=== PATIENT | female | born 1960 | race Caucasian/White ===

== ENCOUNTER → 2021-04-16 15:04 | Outpatient (CLI) | payer BC, SELFPAY ==
--- NOTE | ~2021-04-16 | MM_ITS ---
EXAMINATION: MM screening [facility] BI w kar HISTORY: Screening mammogram TECHNIQUE: Craniocaudal and mediolateral oblique 3-D tomosynthesis images were obtained and synthetic 2-D images were generated. CAD analysis was submitted and interpreted. COMPARISON: 01/01/2019, 01/14/2014, 01/11/2013 BREAST PARENCHYMAL COMPOSITION: There are scattered areas of fibroglandular density. FINDINGS: Scattered benign-appearing calcifications are present. There is no evidence of suspicious m ass, calcification, or architectural distortion to suggest malignancy in either breast. There has bee n no suspicious interval change. IMPRESSION: 1. No mammographic evidence of malignancy. 2. Recommend routine screening mammography in one year. BI-RADS Category 2: Benign finding(s). Reviewed, dictated and finalized at location A. IN WASHER
== END ==
PROVIDERS: Visit Provider Nurse Practitioner
DX: Z12.31 Encounter for screening mammogram for malignant neoplasm of breast (principal)
CPT/HCPCS: 77063; 77067

== ENCOUNTER → 2022-10-04 10:08 | Outpatient (CLI) | payer BC, SELFPAY ==
--- NOTE | ~2022-10-04 | MM_ITS ---
EXAMINATION: MM screening [facility] BI w kar HISTORY: Screening mammogram TECHNIQUE: Craniocaudal and mediolateral oblique 3-D tomosynthesis images were obtained and synthetic 2-D images were generated. CAD analysis was submitted and interpreted. COMPARISON: 04/16/2021, 01/01/2019, 01/14/2014 BREAST PARENCHYMAL COMPOSITION: There are scattered areas of fibroglandular density. FINDINGS: No suspicious mass, calcification, or architectural distortion are identified in either jeni ast to suggest malignancy. There has been no suspicious interval change. IMPRESSION: 1. No mammographic evidence of malignancy. 2. Recommend routine screening mammography in one year. BI-RADS Category 1: Negative Reviewed, dictated and finalized at location A.
== END ==
PROVIDERS: PCP Nurse Practitioner; Visit Provider Nurse Practitioner
DX: Z12.31 Encounter for screening mammogram for malignant neoplasm of breast (principal)
CPT/HCPCS: 77063; 77067

== ENCOUNTER 2024-04-09 12:43 | Outpatient (CLI) | payer BC, SELFPAY ==
--- NOTE | ~2024-04-09 | MM_ITS ---
EXAMINATION: MM screening [facility] BI w kar HISTORY: Screening TECHNIQUE: Craniocaudal and mediolateral oblique 3-D tomosynthesis images were obtained and synthetic 2-D images were generated. CAD analysis was submitted and interpreted. COMPARISON: Comparison to multiple prior studies sequentially, with oldest reviewed study dated 07/2018. BREAST PARENCHYMAL COMPOSITION: Not dense: There are scattered areas of fibroglandular density. FINDINGS: There is no evidence of suspicious mass, calcification, or architectural distortion to sugg est malignancy in either breast. There has been no suspicious interval change. IMPRESSION: 1. No mammographic evidence of malignancy. 2. Recommend routine screening mammography in one year. BI-RADS Category 1: Negative Reviewed, dictated and finalized at location B. 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
== END 2024-04-09 12:44 | disposition home or self-care (01) ==
LOC: MICIMG 12:44
PROVIDERS: PCP Obstetrics & Gynecology Gynecology; Visit Provider Obstetrics & Gynecology Gynecology
DX: Z12.31 Encounter for screening mammogram for malignant neoplasm of breast (principal)
CPT/HCPCS: 77063; 77067

== ENCOUNTER 2024-08-16 00:12 | Day surgery (SDC) | payer BC, SELFPAY ==
[2024-08-05 09:12] VITALS: BMI 26.6
--- OUTSIDE RECORDS SUMMARY | 2024-08-16 00:15 | XMS_ITS | Referral Summary ---
Author Organization [facility] C Address [address] [place] [address] Care Team Providers Care Community Education Coordinator Name Role Phone Franky Castano MD Primary Care Provider + [phone] Allergies No known active allergies Medications betamethasone valerate (VALISONE) 0.1 % lotion Apply 3-5 drops to ear canal (and may also apply to ear canal opening with q-tip) daily for 7 days, then may use twice a week for maintenance 60 mL 1 2 Active triamcinolone (NASACORT) 55 mcg nasal inhaler Administer 2 sprays into each nostril daily To administer: tilt head forward, and aim spray outward (towards the eye or ear on same side) 16.9 mL 11 2 Active benzonatate (TESSALON) 100 mg capsule TAKE 1 CAPSULE BY MOUTH THREE TIMES DAILY FOR 5 DAYS 2 Active predniSONE (DELTASONE) 20 mg tablet 2 Active sulfamethoxazol e-trimethoprim (BACTRIM DS) 800-160 mg per tablet Take 1 tablet by mouth 2 (two) times a day 2 Active albuterol HFA (PROVENTIL HFA,VENTOLIN HFA,PROAIR HFA) 90 mcg/actuation inhaler INHALE 2 PUFFS BY MOUTH EVERY 4 HOURS FOR 5 DAYS 2 Active Active Problems No known active problems Social History Tobacco Use Types Packs/Day Years Used Date Smoking Tobacco: Some Days Cigarettes Smokeless Tobacco: Never AUDIT-C Answer Date Recorded Q1: How often do you have a drink containing alcohol? Never 01/23/2022 Q2: How many drinks containi ng alcohol do you have on a typical day when you are drinking? Patient does not drink 2 Q3: How often do you have si x or more drinks on one occasion? 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
--- OUTSIDE RECORDS SUMMARY | 2024-08-16 00:15 | XMS_ITS | Clinical Summary ---
Author Organization [facility] C Address [address] [place] [address] Care Team Providers Care Jet Engine Mechanic Name Role Phone Franky Casatno MD Primary Care Provider + [phone] Allergies No known active allergies Medications betamethasone [...] Active Active Problems No known active problems Surgical History Surgery Date Site/Laterality Comments TONSILLECTOMY APPENDECTOMY SECTION Social History Tobacco Use Types Packs/Day Years Used Date Smoking Tobacco: Some Days Cigarettes Smokeless Tobacco: Never AUDIT-C Answer Date Recorded Q1: How often do you have a drink containing alcohol? Never 01/23/2022 Q2: How many drinks containi ng alcohol do you have on a typical day when you are drinking? Patient does not drink Q3: How often do you have si x or more drinks on one occasion? 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 Gender Identity Not on file Sexual Orientation Not on file Obstetrics History Plan of Treatment Health Maintenance Due Date Last Done Comments Breast Cancer Screening-Mammogram 1960 Cervical Cancer Screening 1960 Colon Cancer Screening-Colonoscopy 1960 Depression Screening 1962 Hepatitis C Screening 1962 Hepatitis B Screening 1980 Regular Well Visit/Exam 18-64 1980 Pneumococcal vaccine <65 (1 of 2 - PCV) 1981 Zoster Vaccine (1 of 2) 2012 Covid-19 Vaccine (4 - season) 2024 05/15/2021, 09/01/2020, 08/11/2020 Influenza Vaccine (#1) 2024 DTaP/Tdap/Td Vaccine (2 - Td or Tdap) 11/16/2028 Insurance [employer] CHOICE Care Teams Jet Engine Mechanic Relationship Specialty Start Date End Date Franky Castano MD PCP - General Family Medicine 01/23/22
--- OUTSIDE RECORDS SUMMARY | 2024-08-16 00:15 | XMS_ITS | Continuity of Care Document ---
Author Organization [facility] Address [address] [place] [address] Phone Care Team Providers Care Burner Operator Name Role Phone Ramos Branham MD Unavailable Unavailabl e Allergies, Adverse Reactions, Alerts Substance Reaction Status Criticality No Known Allergies Active No Inform ation Procedures Procedure Date BMI Documented Above Normal Limit F/U Pl an Doc X-ray exam elbow, 3+ views Office/outpatient visit,[facility], [facility] 2023 Advance Directives Directive Yes / No Effective Date File Name No Information Encounters Encounter Description Practice Location Reason(s) For Visit Diagnoses Date Provider Providers Copied on Encounter [facility] [employer] [facility], [address], [id number], [place] tel:[phone] [employer] [facility] No Information 4 Yonas Beasley. [address] [facility] [facility] [address], [place], [place], [id number], [place]. 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 [address] [facility], [address], [place], [place], [id number], [place]. tel:[phone] [employer] [facility], [address], [id number], [place] tel:[phone] [facility] Pain in right elbow 4 [facility]. [address] [facility] [address] [facility], [address], [place], [place], [id number], [place]. tel:[phone] Referring Provider: Ramos Da Silva, [address], [place], [address] . tel:[phone] Office/outpat ient visit,new, [facility], [address], [place], [place], [id number], [place] tel:[phone] [facility] Right elbow (chief complaint) Pain in right elbowBenign neoplasm of connective and other soft tissue of right upper limb, including shoulder 4 Yonas Beasley. [address] [facility], [address], [place], [place], [id number], [place]. tel:[phone] Family History Family Member Type Diagnosis Age At Onset No Information Payers Payer name Insurance type Covered libertarian ID Authoriza derrellapril(s) Kayley Mondragon [facility] [id number] Social History Type Description Quantity Date Captured Comments Alcohol Use Details Unknown Caffeine Use Details Unknown Tobacco Use Status Smoking Status No Information Sex Female Chief Complaint And Reason For Visit No Information Reason For Referral Reason For Referral No Information Plan Of Treatment Date Type Action Status Referral Ordered: Ultrasound Exam, Extremity RT ordered Referral Ordered: X-ray exam elbow, 3+ views RT ordered Referral Ordered: MRI Upper extr joint, w/o contrast RT elbow ordered History Of Present Illness Encounter Date Complaint History Of Prese nt Illness Right elbow Kadi presents to the office today on February 18, 2024. She is here because of a painful growing mass on the posterior aspect of her right elbow. Kadi reports that she first noticed this mass more than 10 years ago. Over time, it has gotten larger and more painful. She does not describe any numbness or tingling. Kadi tells me that she first presented to her cylinder die machine helper, and her cylinder die machine helper referred her to my office. She is here now for further evaluation and treatment of her right elbow. Functional Status Date Functional Assessmen t No Information Instructions Date Instruction Additional Infor mation No Information Assessments Type Assessment Date No Information Patient Care Teams Name Effective Dates (start - stop) Status Members No Information
[2024-08-16 08:42] VITALS: BP 143/83; PULSE 91; RESP 16; TEMP 36.4; O2SAT 100; BMI 26.5
--- NOTE | 2024-08-16 08:46 | P.PNAN_ITS ---
Anes - Initial Pre Proc Eval Procedure: Operation Date: 08/16/24 10:00 Proposed Procedures p Colonoscopy - Patrice Parker MD Date/Time: 08/16/24 08:46 Surgeon: Patrice Parker MD Pre Op Diagnosis: fecal abnormalities Patient Data Age: 63 Gender: F Height: 1.7 m Weight: 76.9 kg Last Vital Signs Temp 36.4 C 08/16/24 08:42 Pulse 91 08/16/24 08:42 Resp 16 08/16/24 08:42 BP 143/83 H 08/16/24 08:42 Pulse Ox 100 08/16/24 08:42 O2 Del Method Room Air 08/16/24 08:42 Allergies Allergy/AdvReac Type Severity Reaction Status Date / Time No Known Allergies Allergy Mild Verified 08/16/24 08:39 Home Medications ?Medication ?Instructions ?Recorded ?Confirmed ?Type ergocalciferol (vitamin D2) 1,250 1,250 mcg PO WEEKLY 08/05/24 08/16/24 History mcg (50,000 unit) capsule Patient hx anesthesia problems: none Family hx anesthesia problems: none Results Review: All pre-operative results and documents have been reviewed as part of the pre- operative evaluation. [facility] Past Medical History Medical History (Updated 08/16/24 @ 08:46 by Nathan Nicholson MD) Hyperlipidemia Surgical History Surgical History (Updated 08/16/24 @ 08:46 by Nathan Nicholson MD) Hx of tonsillectomy History of appendectomy Family History Family History Mother Hypertension Patient's mother is in good health, Onset Age: 76 Grandparent Diabetes mellitus Social History Social History Years smoked: 40 Smoking status: Current every day smoker Tobacco type: cigarettes Second hand tobacco smoke exposure: No Alcohol intake: never Substance use: never Substance use type: does not use Living arrangements: with family Spiritual care concerns: No Anes - Eval Final PreProcedure Day of Procedure 08/16/24 08:46 Patient weight: normal Heart: regular rate and rhythm Lungs: clear to auscultation Airway: Mallampati scale class II Neurological: alert and oriented Last oral intake: >/= 8 hours ASA classification: III Emergent: no Anesthetic plan: proceed Anesthesia type and monitoring: general GIVS and standard monitoring Results Review: All pre-operative results and documents have been reviewed as part of the pre- operative evaluation. Informed Consent: The patient's anesthetic plan and its attendant risks and benefits were discussed with the patient/family/POA. Questions were solicited and answers provided to the satisfaction of the patient/family/POA.
[2024-08-16] MEDS: LACTATED RINGERS 1,000 ML 150 ML IV CONT (08:54)
--- NOTE | 2024-08-16 09:14 | PM.IMHP ---
H&P: HPI History of Present Illness Date/Time: 08/16/24 09:14 Chief Complaint: Screening colonoscopy Narrative: This is the patient's first colonoscopy. There are no GI symptoms and there is no family history of colorectal cancer. she has been getting Cologuard testing, and was recently positive. Review of Systems Review of Systems: All systems reviewed & are unremarkable except as noted in HPI and below PMFSH Past Medical History Medical History (Updated 08/16/24 @ 09:15 by Patrice Parker MD) Hyperlipidemia Surgical History Surgical History (Updated 08/16/24 @ 08:46 by Nathan Nicholson MD) Hx of tonsillectomy History of appendectomy Family History Family History Mother Hypertension Patient's mother is in good health, Onset Age: 76 Grandparent Diabetes mellitus Social History Social History Years smoked: 40 Smoking status: Current every day smoker Tobacco type: cigarettes Second hand tobacco smoke exposure: No Alcohol intake: never Substance use: never Substance use type: does not use Living arrangements: with family Spiritual care concerns: No Meds Home Medications and Allergies Home Medications ?Medication ?Instructions ?Recorded ?Confirmed ?Type ergocalciferol (vitamin D2) 1,250 1,250 mcg PO WEEKLY 08/05/24 08/16/24 History mcg (50,000 unit) capsule Allergies Allergy/AdvReac Type Severity Reaction Status Date / Time No Known Allergies Allergy Mild Verified 08/16/24 08:39 Vital Signs Vital Signs - 24 hr 08/16/24 08:42 Temperature 97.6 F Pulse Rate 91 Respiratory Rate 16 Blood Pressure 143/83 H Pulse Oximetry 100 Oxygen Delivery Room Air Exam Const: General: cooperative and healthy appearing Resp: Effort & Inspection: normal respiratory effort and able to speak in complete sentences Auscultation: clear to auscultation bilaterally Cardio: Rate: regular rate Rhythm: regular rhythm GI: Inspection: normal to inspection GI Palp: No No hepatosplenomegaly present Auscultation: normal bowel sounds Rectal Exam: deferred Skin: General skin exam: normal color Psych: Appearance: grossly normal Mental Status: mental status grossly normal Assessment and Plan Assessment and plan (1) Encounter for screening colonoscopy: Code(s): Z12.11 - Encounter for screening for malignant neoplasm of colon Status: Acute Assessment and Plan: The patient is deemed a good candidate for the procedure. Consent signed. Will proceed.
[2024-08-16 09:33] VITALS: BP 88/53; PULSE 78; RESP 20; O2SAT 100
[2024-08-16 09:43] VITALS: BP 93/69; PULSE 84; RESP 20; O2SAT 100
[2024-08-16 09:53] VITALS: BP 106/74; PULSE 75; RESP 18; O2SAT 100
== END 2024-08-16 10:00 | disposition home or self-care (01) ==
PROVIDERS: PCP Family Medicine; Referring Provider Obstetrics & Gynecology Gynecology; Visit Provider Internal Medicine Gastroenterology
PROC: 0DJD8ZZ Inspection of Lower Intestinal Tract, Via Natural or Artificial Opening Endoscopic (ICD-10-PCS; CPT 45378; principal; 2024-08-16 10:00)
DX: Z12.11 Encounter for screening for malignant neoplasm of colon (principal); E78.5 Hyperlipidemia, unspecified; F17.210 Nicotine dependence, cigarettes, uncomplicated; Z98.890 Other specified postprocedural states
CPT/HCPCS: 45378; J2704; J7120

== ENCOUNTER 2024-08-23 12:41 | Outpatient (CLI) | payer BC, SELFPAY ==
--- NOTE | ~2024-08-23 | DEXA_ITS ---
Bone Density Report Name: MARYLU LIGHT Age: 63 Sex: Female Ethnicity: White Date of : 1960 Indication: postmenopausal; screening for osteoporosis; height loss; Referring Provider: KASEY LITTLEJOHN Study: Bone densitometry was performed. Exam Date: August 23, 2024 Accession number: [id number] Bone Density: Region BMD T-score Z-score Classification AP Spine(L1-L4) 1.046 0.0 1.5 Normal Femoral Neck (Left) 0.742 -1.0 0.4 Normal Total Hip (Left) 0.899 -0.4 0.7 Normal Femoral Neck (Right) 0.656 -1.7 -0.4 Osteopenia Total Hip (Right) 0.821 -1.0 0.1 Normal Total Hip Mean 0.860 -0.7 0.4 Normal World Health Organization criteria for BMD impression classify patients as: Normal (T-score at or above -1.0), Osteopenia (T-score between -1.0 and -2.5), or Osteoporosis (T-score at or below -2.5). 10-year Fracture Risk(1): Major Osteoporotic Fracture 9.2% Hip Fracture 1.6% Reported Risk Factors: [place] (), Neck BMD=0.656, BMI=27.0, smoking (1) FRAX(R) Version 3.08. Fracture probability calculated for an untreated patient. Fracture probability may be lower if the patient has received treatment. Clinical Information Provided by Patient: Smokes Has used the following medications: Vitamin D Patient maximum height was 68 Menopause Age: 54 Drinks caffeinated beverages Onset of menses at age 15 Number of children 1 Impression: The patient has low bone mass, based on the Right Femoral Neck T-score. The patient has an estimated ten-year risk of hip fracture of 1.6% and an estimated ten-year risk of major fracture of 9.2%, based on the WHO FRAX algorithm. The patient has risk factors, including: smoking. Discussion: BONE DENSITY IS LOW AT ONE OR MORE SKELETAL SITES. This patient's lowest T-score is low at one or more skeletal sites. It meets the World Health Organization's (WHO) criteria for ?low bone mass? (T-score between -1.0 and -2.5). The patient's 10-year risk of fracture as calculated by FRAX is less than the threshold where pharmacological therapy is recommended by the National Osteoporosis Foundation (NOF). However, all treatment decisions require clinical judgment and consideration of individual patient factors, including patient preferences, comorbidities, previous drug use, risk factors not captured in the FRAX model (e.g., frailty, falls, vitamin D deficiency, increased bone turnover, interval significant decline in bone density) and possible under or overestimation of fracture risk by FRAX. The patient should follow a healthful lifestyle (good nutrition with adequate calcium and vitamin D, and appropriate weight-bearing exercise). Follow-Up: Consider repeating this study in 2 to 3 years to reassess this patient's status, or sooner if there is some new clinical indication. Reported by: STEVE on 08/23/2024 1:24:00 PM. Reviewed, dictated and finalized at location ADragan FUENTES
--- OUTSIDE RECORDS SUMMARY | 2024-08-23 14:27 | XMS_ITS | Clinical Summary ---
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
--- OUTSIDE RECORDS SUMMARY | 2024-08-23 14:27 | XMS_ITS | Referral Summary ---
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
--- OUTSIDE RECORDS SUMMARY | 2024-08-23 14:27 | XMS_ITS | Continuity of Care Document ---
Author Organization [facility] Address [address] [place] [address] Phone Care Team Providers Care Quality Assurance Advisor Name Role Phone Ramos Branham MD Unavailable Unavailabl e Allergies, Adverse Reactions, Alerts Substance Reaction Status Criticality No Known Allergies Active No Inform ation Procedures Procedure Date BMI Documented Above Normal Limit F/U Pl an Doc X-ray exam elbow, 3+ views Office/outpatient visit,[facility], [facility] 2023 Advance Directives Directive Yes / No Effective Date File Name No Information Encounters Encounter Description Practice Location Reason(s) For Visit Diagnoses Date Provider Providers Copied on Encounter [facility], [address], [id number], [place] tel:[phone] [facility] No Information 4 Yonas Beasley. [address] [facility] [facility] [address], [place], [place], [id number], [place]. tel:[phone] [facility], [address], [id number], [place] tel:[phone] [facility] 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 [address] [facility], [address], [place], [place], [id number], [place]. tel:[phone] [facility], [address], [id number], [place] tel:[phone] [facility] Pain in right elbow 4 [facility]. [address] [facility], [address], [place], [place], [id number], [place]. tel:[phone] Referring Provider: Ramos Da Silva, [address] [facility] [address], [place], [address] . tel:[phone] Office/outpat ient visit,new, [facility], [address], [place], [place], [id number], [place] tel:[phone] [facility] Right elbow (chief complaint) Pain in right elbowBenign neoplasm of connective and other soft tissue of right upper limb, including shoulder 4 Yonas Beasley. [address] [facility], [address], [place], [place], [id number], [place]. tel:[phone] Family History Family Member Type Diagnosis Age At Onset No Information Payers Payer name Insurance type Covered democrat ID Authoriza derrellapril(s) Kayley Mondragon [facility] [id number] Social History Type Description Quantity Date [...] me that she first presented to her clay miller, and her clay miller referred her to my office. She is here now for further evaluation and treatment of her right elbow. Functional Status Date Functional Assessmen t No Information Instructions Date Instruction Additional Infor mation No Information Assessments Type Assessment Date No Information Patient Care Teams Name Effective Dates (start - stop) Status Members No Information
== END 2024-08-23 12:42 | disposition home or self-care (01) ==
LOC: ANHIMG 12:46
PROVIDERS: PCP Family Medicine; Visit Provider Obstetrics & Gynecology Gynecology
DX: M85.851 Other specified disorders of bone density and structure, right thigh (principal); Z78.0 Asymptomatic menopausal state
CPT/HCPCS: 77080

== ENCOUNTER 2024-10-18 19:59 | Emergency (ER) | payer BC, SELFPAY ==
[2024-10-18] VITALS (10 sets, daily range): BP systolic 138–163; BP diastolic 78–87; PULSE 69–82; RESP 14–20; TEMP 36.4; O2SAT 98–100
--- NOTE | ~2024-10-18 | CT_ITS ---
EXAMINATION: CT abdomen pelvis wo con DATE: 10/18/2024 23:13 INDICATION: gross hematuria; presyncope TECHNIQUE: Computed tomography (CT) of the abdomen and pelvis was performed without intravenous contr ast. Automated exposure control and iterative reconstruction technique were employed. The dose-length product was 588.74 mGy-cm. COMPARISON: None. FINDINGS: Lower thorax: Mild coronary artery calcification. Granulomatous calcification in the lungs. Liver: Normal. Biliary/Gallbladder: Gallbladder is normal. No bile duct dilation. Pancreas: No mass or duct dilation. Spleen: Normal. Adrenals:No mass. Kidneys: No suspicious mass, obstructing stone, or hydronephrosis. Simple left midpole cyst. GI tract: No small or large bowel dilation. Likely short segment intussusception of small bowel in th e left lower quadrant (axial image [id number]). The appendix is not confidently visualized. Mesentery/Peritoneum: No ascites, mass, or free air. Mesenteric stranding in the left lower quadrant. Retroperitoneum: No mass. Atherosclerotic calcifications of intra-abdominal arterial vessels. A varix is noted in the right paracolic gutter, originating off of renal veins and probably terminating in t he left gonadal vein. Pelvis: Normal uterus and urinary bladder. Bilateral ovaries not commonly visualized. The distal uret ers are difficult to trace in their entirety, but no definite calcification noted in the expected pat hway of the ureters. Soft Tissues: Soft tissues and body wall unremarkable. Bones: No acute osseous finding. IMPRESSION: No definite evidence of obstructive uropathy or nephrolithiasis, noting that the distal ureters are d ifficult to trace in their entirety. Left retroperitoneal/perirenal varix, may be secondary to portal hypertension, renal vein thrombosis, or gonadal vein thrombosis, but evaluation is limited without contrast. Recommend CT of the abdomen and pelvis with contrast for further evaluation. Short segment small bowel intussusception in the left lower quadrant. Typically this is an incidental finding, however there is associated mesenteric edema/inflammation. Correlate for symptoms of left l ower quadrant pain. Reviewed, dictated and finalized at location K. IMPRESSION: No definite evidence of obstructive uropathy or nephrolithiasis, noting that th e distal ureters are difficult to trace in their entirety. Left retroperitoneal/perirenal varix, may be secondary to portal hypertension, renal vein thrombosis, or gonadal vein thrombosis, but evaluation is limited wi thout contrast. Recommend CT of the abdomen and pelvis with contrast for furthe r evaluation. Short segment small bowel intussusception in the left lower quadrant. Typically this is an incidental finding, however there is associated mesenteric edema/in flammation. Correlate for symptoms of left lower quadrant pain.
--- OUTSIDE RECORDS SUMMARY | 2024-10-18 20:02 | XMS_ITS | Continuity of Care Document ---
Author Organization [facility] Address [address] [place] [address] Phone Care Team Providers Care Rural Route Mail Carrier Name Role Phone Ramos Branham MD Unavailable Unavailabl e Allergies, Adverse Reactions, Alerts Substance Reaction Status Criticality No Known Allergies Active No Inform ation Procedures Procedure Date BMI Documented Above Normal Limit F/U Pl an Doc X-ray exam elbow, 3+ views Office/outpatient visit,[facility], [facility] [place] Advance Directives Directive Yes / No Effective Date File Name No Information Encounters Encounter Description Practice Location Reason(s) For Visit Diagnoses Date Provider Providers Copied on Encounter [facility] [facility], [address], [id number], [place] tel:[phone] [facility] No Information 4 Yonas Beasley. [address] [facility] [address], [place], [place], [id number], [place]. 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 [address] [facility], [address], [place], [place], [id number], [place]. tel:[phone] [facility], [address], [id number], [place] tel:[phone] [facility] Pain in right elbow 4 [facility]. [address] [facility], [address], [place], [place], [id number], [place]. tel:[phone] Referring Provider: Ramos Da Silva, [address] [facility] [address], [place], [address] . tel:[phone] Office/outpat ient visit,[place], [facility] [place] [facility], [address] [facility] [address], [place], [place], [id number], [place] tel:[phone] [facility] Right elbow (chief complaint) Pain in right elbowBenign neoplasm of connective and other soft tissue of right upper limb, including shoulder 4 Yonas Beasley. [address] [facility], [address], [place], [place], [id number], [place]. tel:[phone] Family History Family Member Type Diagnosis Age At Onset No Information Payers Payer name Insurance type Covered libertarian ID Authoriza derrellapril(s) Kayley Mondragon [facility] [id number] Social History Type Description Quantity Date [...] me that she first presented to her carding machine feeder, and her carding machine feeder referred her to my office. She is here now for further evaluation and treatment of her right elbow. Functional Status Date Functional Assessmen t No Information Instructions Date Instruction Additional Infor mation No Information Assessments Type Assessment Date No Information Patient Care Teams Name Effective Dates (start - stop) Status Members No Information
--- NOTE | 2024-10-18 22:01 | ECG_ITS ---
Test Date: 2024-10-18 22:26:28 Measurements Intervals [place] Rate: 71 P: 61 MN: 150 QRS: 25 QRSD: 93 T: 29 QT: 384 QTc: 417 Interpretive Statements SINUS RHYTHM INCOMPLETE RIGHT BUNDLE BRANCH BLOCK [90+ ms QRS DURATION, TERMINAL R IN V1/V2, 40+ ms S IN I/aVL/V4/V5/V6] INTERPRETATION BASED ON A DEFAULT AGE OF 40 YEARS No previous ECG available for comparison Electronically Signed On 10-19-2024 13:32:08 CDT by William Rojas M.D.
--- OUTSIDE RECORDS SUMMARY | 2024-10-18 22:33 | XMS_ITS | Referral Summary ---
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
--- OUTSIDE RECORDS SUMMARY | 2024-10-18 22:33 | XMS_ITS | Continuity of Care Document ---
Author Organization [facility] Address [address] [place] [address] Phone Care Team Providers Care Clinical Technologist Name Role Phone Ramos Branham MD Unavailable Unavailabl e Allergies, Adverse Reactions, Alerts Substance Reaction Status Criticality No Known Allergies Active No Inform ation Procedures Procedure Date BMI Documented Above Normal Limit F/U Pl an Doc X-ray exam elbow, 3+ views Office/outpatient visit,[facility], [facility] [place] 2023 Advance Directives Directive Yes / No Effective Date File Name No Information Encounters Encounter Description Practice Location Reason(s) For Visit Diagnoses Date Provider Providers Copied on Encounter [facility] [employer] [facility], [address], [id number], [place] tel:[phone] [facility] No Information 4 Yonas Beasley. [address] [facility], [facility] [address], [place], [place], [id number], [place]. 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 [address] [facility], [address], [place], [place], [id number], [place]. tel:[phone] [facility], [address], [id number], [place] tel:[phone] [facility] Imaging [facility] Pain in right elbow 4 [facility]. [address] [facility], [address], [place], [place], [address], [place]. tel:[phone] Referring Provider: Ramos Da Silva, [address] [facility] [address], [place], [address] . tel:[phone] Office/outpat ient visit,new, [facility], [address] [facility] [address], [place], [place], [address], [place] tel:[phone] [facility] Right elbow (chief complaint) Pain in right elbowBenign neoplasm of connective and other soft tissue of right upper limb, including shoulder 4 Yonas Beasley. [address] [facility], [address], [place], [place], [address], [place]. tel:[phone] Family History Family Member Type Diagnosis Age At Onset No Information Payers Payer name Insurance type Covered libertarian ID Authoriza derrellapril(s) Kayley Mondragon [facility] [id number] 04 Social History Type Description Quantity Date [...] me that she first presented to her toll collector, and her toll collector referred her to my office. She is here now for further evaluation and treatment of her right elbow. Functional Status Date Functional Assessmen t No Information Instructions Date Instruction Additional Infor mation No Information Assessments Type Assessment Date No Information Patient Care Teams Name Effective Dates (start - stop) Status Members No Information
--- OUTSIDE RECORDS SUMMARY | 2024-10-18 22:33 | XMS_ITS | Clinical Summary ---
Author Organization 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
[2024-10-18 22:41] LABS: Basophils Absolute Auto 0.1 K/mm3 (0.0-0.1); Basophils Percent Auto 1.2 % (0.2-1.2); Eosinophils Absolute Auto 0.3 K/mm3 (0-0.3); Eosinophils Percent Auto 2.8 % (0-4.4); Hematocrit 45.4 % (37.0-47.0); Hemoglobin 14.4 g/dL (12.0-15.0); Immature Granulocyte Absolute 0.02 K/mm3 (0.00-0.031); Immature Granulocyte Percent A 0.2 % (0-0.5); Lymphocytes Absolute Auto 1.98 K/mm3 (0.9-3.2); Lymphocytes Percent Auto 20.8 % (18.3-44.2); Mean Corpuscular HGB Conc 31.7 g/dl (32-36); Mean Corpuscular Hemoglobin 31.6 pg (26-34); Mean Corpuscular Volume 99.6 fl (80-100); Mean Platelet Volume 11.1 fl (7.4-10.4); Monocytes Absolute Auto 0.6 K/mm3 (0.1-0.6); Monocytes Percent Auto 5.8 % (2.6-8.5); Neutrophils Absolute Auto 6.6 K/mm3 (1.3-6.7); Neutrophils Percent Auto 69.2 % (45.5-73.1); Platelet Count Result 204 k/mm3 (150-375); Red Blood Count 4.56 M/mm3 (4.2-5.4); Red Cell Distribution Width 12.1 % (11.5-14.5); White Blood Count 9.5 K/mm3 (4.5-10.0)
[2024-10-18 22:49] LABS: Add Urine Microscopic? YES; Appearance Urine Clear (Clear); Bacteria Urine None Seen /hpf; Bilirubin Urine Negative (Negative); Blood Urine 2+ (Negative); Color Urine Yellow (Yellow); Glucose Urine UA Negative (Negative); Ketones Urine Negative (Negative); Leukocyte Esterase Ur Negative LEU/UL (Negative); Nitrate Urine Negative (Negative); Non Pathogenic Casts 0-2; Protein Urine Negative (Negative); RBC Urine 21-50 /hpf (0-2); Specific Grav Ur 1.007 (1.001-1.035); Squamous Epithelial Cell Urine None Seen /hpf (Few); Urobilinogen Urine 0.2 mg/dL (<2.0); WBC Urine 0-5 /hpf (0-3)
[2024-10-18 23:04] LABS: Alanine Aminotransferase 19 U/L (6-35); Albumin Level 4.4 g/dL (3.5-5.1); Alkaline Phosphatase 58 U/L (38-126); Anion Gap 8 mmol/L (4-12); Aspartate Amino Transferase 40 U/L (14-36); Bilirubin,Total 0.4 mg/dL (0.2-1.3); Blood Urea Nitrogen 16 mg/dL (7-17); Calcium 9.4 mg/dL (8.4-10.2); Carbon Dioxide 25 mmol/L (22-30); Chloride 107 mmol/L (98-107); Estimated CRCL calculation 80 ml/min; Estimated Glomerular Filt Rate > 60; Glucose 92 mg/dL (65-110); Magnesium 2.1 mg/dL (1.6-2.3); Potassium 4.1 mmol/L (3.4-5.0); Sodium 140 mmol/L (137-145)
[2024-10-18 23:11] LABS: Troponin I < 0.012 ng/mL (0.000-0.034)
[2024-10-19] VITALS (8 sets, daily range): BP systolic 137–145; BP diastolic 76–89; PULSE 67–84; RESP 14–20; O2SAT 96–99
--- NOTE | 2024-10-19 00:58 | ED_ITS ---
HPI - General Adult General Chief complaint: Unspecified Stated complaint: Nausea, lightheaded, cold sweat, feels off Time Seen by Provider: 10/18/24 21:49 History of Present Illness HPI narrative: Patient was eating dinner when she suddenly felt very nauseous, lightheaded, felt like she was going to pass out. She laid down and immediately felt better but came in because she wanted to make sure her heart was okay. Symptoms have completely resolved. No abdominal pain, chest pain, shortness of breath when this happened Related Data Home Medications Medication Instructions Recorded Confirmed Last Taken Type ergocalciferol (vitamin D2) 1,250 1,250 mcg PO WEEKLY 08/05/24 08/16/24 08/14/24 History mcg (50,000 unit) capsule Allergies Allergy/AdvReac Type Severity Reaction Status Date / Time No Known Allergies Allergy Mild Verified 10/18/24 20:01 Review of Systems 2 Review of Systems: All systems reviewed & are unremarkable except as noted in HPI and below PMFSH Past Medical History Medical History (Updated 10/19/24 @ 01:38 by Becka Fabian MD) Hyperlipidemia Surgical History Surgical History (Updated 08/16/24 @ 08:46 by Nathan Nicholson MD) Hx of tonsillectomy History of appendectomy Family History Family History Mother Hypertension Patient's mother is in good health, Onset Age: 76 Grandparent Diabetes mellitus Social History Social History Years smoked: 40 Smoking status: Current every day smoker Tobacco type: cigarettes Second hand tobacco smoke exposure: No Alcohol intake: never Substance use: never Substance use type: does not use Living arrangements: with family Spiritual care concerns: No Exam 2 Narrative: EXAMINATION OF ORGAN SYSTEMS/BODY AREAS: Constitutional: Vital signs per nursing GENERAL:[No acute distress, non-toxic appearing.] HEAD: Normal with no signs of head trauma. EYES: EOMI, conjunctiva normal ENT: Hearing grossly intact LUNGS: Nonlabored breathing. HEART: [Regular rate and rhythm] ABD: [Soft], [nontender to palpation] EXT: Normal range of motion SKIN: [No rashes or lesions.] NEURO: [Alert and oriented x 3. No gross focal sensory or strength deficits.] PSYCH: Normal affect Course Vital Signs Vital signs: Vital Signs Temperature 97.6 F 10/18/24 20:02 Pulse Rate 82 10/18/24 20:02 Respiratory Rate 18 10/18/24 20:02 Blood Pressure 163/82 H 10/18/24 20:02 Pulse Oximetry 100 10/18/24 20:02 Oxygen Delivery Room Air 10/18/24 20:02 Temperature 97.6 F 10/18/24 20:02 Pulse Rate 67 10/19/24 01:51 Respiratory Rate 15 10/19/24 01:51 Blood Pressure 137/76 10/19/24 01:51 Pulse Oximetry 99 10/19/24 01:51 Oxygen Delivery Room Air 10/18/24 20:02 Medical Decision Making MDM Narrative Medical decision making narrative: Patient presents with presyncope that has now resolved. No Chest pain or shortness of breath EKG on my independent interpretation shows normal sinus rhythm rate 71, MS 150, QRS 93, QTC 406, normal axis, no significant ST elevations or depressions or signs of acute ischemia or arrhythmia. She is very well-appearing here no distress, completely normal exam. Labs within acceptable limits including a negative troponin, though she did have some blood in her urine. Given this I did obtain a CT; several incidental findings including possible intussusception(?), renal artery stenosis(?), patient has no tenderness at all to her abdomen and no abdominal pain, I did discuss these findings with her, and that she can follow up with urologist outpatient for the hematuria. Second troponin is also negative. Discussed with the patient, on re-evaluation she is still having no symptoms, agreeable to outpatient management with return precautions. Vital Signs Vital Signs: Vital Signs Temperature 97.6 F 10/18/24 20:02 Pulse Rate 82 10/18/24 20:02 Respiratory Rate 18 10/18/24 20:02 Blood Pressure 163/82 H 10/18/24 20:02 Pulse Oximetry 100 10/18/24 20:02 Oxygen Delivery Room Air 10/18/24 20:02 Temperature 97.6 F 10/18/24 20:02 Pulse Rate 67 10/19/24 01:51 Respiratory Rate 15 10/19/24 01:51 Blood Pressure 137/76 10/19/24 01:51 Pulse Oximetry 99 10/19/24 01:51 Oxygen Delivery Room Air 10/18/24 20:02 Lab Data 10/18/24 22:19 10/18/24 22:19 Labs: Lab Results 10/18/24 10/19/24 Range/Units 22:19 01:02 WBC 9.5 (4.5-10.0) K/mm3 RBC 4.56 (4.2-5.4) M/mm3 Hgb 14.4 (12.0-15.0) g/dL Hct 45.4 (37.0-47.0) % MCV 99.6 (80-100) fl MCH 31.6 (26-34) pg MCHC 31.7 L (32-36) g/dl RDW 12.1 (11.5-14.5) % Plt Count 204 (150-375) k/mm3 MPV 11.1 H (7.4-10.4) fl Immature Gran % (Auto) 0.2 (0-0.5) % Neut % (Auto) 69.2 (45.5-73.1) % Lymph % (Auto) 20.8 (18.3-44.2) % [place] % (Auto) 5.8 (2.6-8.5) % Eos % (Auto) 2.8 (0-4.4) % Baso % (Auto) 1.2 (0.2-1.2) % Lymph # (Auto) 1.98 (0.9-3.2) K/mm3 [place] # (Auto) 0.6 (0.1-0.6) K/mm3 Eos # (Auto) 0.3 (0-0.3) K/mm3 Baso # (Auto) 0.1 (0.0-0.1) K/mm3 Abs Immat Gran (auto) 0.02 (0.00-0.031) K/mm3 Absolute Neuts (auto) 6.6 (1.3-6.7) K/mm3 Absolute Nucleated RBC 0.000 (0.0-0.012) K/mm3 Nucleated RBC % 0.0 (0.0-0.2) % Sodium 140 (137-145) mmol/L Potassium 4.1 (3.4-5.0) mmol/L Chloride 107 (98-107) mmol/L Carbon Dioxide 25 (22-30) mmol/L Anion Gap 8 (4-12) mmol/L BUN 16 (7-17) mg/dL Creatinine 0.59 L (0.7-1.0) mg/dL Estim Creat Clear Calc 80 ml/min Estimated GFR > 60 (59 - ) Glucose 92 (65-110) mg/dL Lactic Acid 1.0 (0.7-2.0) mmol/L Calcium 9.4 (8.4-10.2) mg/dL Magnesium 2.1 (1.6-2.3) mg/dL Total Bilirubin 0.4 (0.2-1.3) mg/dL AST 40 H (14-36) U/L ALT 19 (6-35) U/L Alkaline Phosphatase 58 (38-126) U/L Troponin I < 0.012 < 0.012 (0.000-0.034) ng/mL Total Protein 7.0 (6.3-8.2) g/dL Albumin 4.4 (3.5-5.1) g/dL Urine Color Yellow (Yellow) Urine Appearance Clear (Clear) Urine pH 7.0 (5.0-9.0) Ur Specific [place] 1.007 (1.001-1.035) Urine Protein Negative (Negative) mg/dL Urine Glucose (UA) Negative (Negative) mg/dL Urine Ketones Negative (Negative) mg/dL Ur Blood (Man) 2+ H (Negative) Urine Nitrate Negative (Negative) Urine Bilirubin Negative (Negative) Urine Urobilinogen 0.2 (<2.0) mg/dL Leukocyte Esterase Rfl Negative (Negative) NICK/UL Urine RBC 21-50 H (0-2) /hpf Urine WBC 0-5 (0-3) /hpf Ur Squamous Epith Cells None seen (Few) /hpf Urine Bacteria None seen /hpf Urine Casts 0-2 Discharge Plan Discharge Clinical Impression: Pre-syncope, Hematuria Patient Disposition: Home Condition: Stable Instructions: Near Syncope (ED) Additional Instructions: Please follow up with your doctor; you can always return for any further issues. Patient Language: Urdu Prescriptions: No Action ergocalciferol (vitamin D2) 1,250 mcg (50,000 unit) capsule 1,250 mcg PO WEEKLY Follow-up/Referrals: Franky Castano MD [Primary Care Provider] - 2 Days
[2024-10-19 01:28] LABS: Troponin I < 0.012 ng/mL (0.000-0.034)
== END 2024-10-19 01:52 | disposition home or self-care (01) ==
PROVIDERS: Emergency Provider Emergency Medicine; PCP Family Medicine
DX: R55 Syncope and collapse (principal); R31.9 Hematuria, unspecified; E78.5 Hyperlipidemia, unspecified; F17.210 Nicotine dependence, cigarettes, uncomplicated; I45.10 Unspecified right bundle-branch block
CPT/HCPCS: 36415; 74176; 80053; 81001; 83605; 83735; 84484; 85025; 93005; 99284

== ENCOUNTER 2024-11-17 14:47 | Outpatient (CLI) | payer BC, SELFPAY ==
--- NOTE | ~2024-11-17 | US_ITS ---
EXAM: PELVIC ULTRASOUND HISTORY: Postmenopausal bleeding COMPARISON: None. FINDINGS: UTERUS: 8.0 x 3.1 x 4.3 cm. The endometrial complex is thickened and heterogeneous measuring 11 mm. RIGHT OVARY: Despite prolonged interrogation, the right ovary was not visualized. LEFT OVARY: Despite prolonged interrogation, the left ovary was not visualized. No free fluid is identified within the pelvis. IMPRESSION: Thickening and heterogeneity within the endometrial complex. Reviewed, dictated and finalized at location A.
== END 2024-11-17 14:48 | disposition home or self-care (01) ==
LOC: MICIMG 14:49
PROVIDERS: PCP Family Medicine; Visit Provider Obstetrics & Gynecology Gynecology
DX: R93.89 Abnormal findings on diagnostic imaging of other specified body structures (principal); N95.0 Postmenopausal bleeding
CPT/HCPCS: 76830

== ENCOUNTER 2024-12-02 07:30 | Outpatient (CLI) | payer BC, SELFPAY ==
--- NOTE | ~2024-12-02 | CT_ITS ---
CT of the Abdomen and Pelvis: Indication: Hematuria Technique: 2.5 mm axial scans were obtained through the abdomen and pelvis prior to and following in travenous administration of 130 cc of Omnipaque 350. Dose reduction technique was used on this scan b y utilizing automated exposure control and iterative reconstruction technique. The dose-length produc t (DLP) was 1265.28 mGy-cm. COMPARISON: 10/18/2024 Findings: Scans through the lung bases are unremarkable. The liver, spleen, pancreas, gallbladder, adrenals and kidneys are within normal limits. No evidence of aortic aneurysm. No lymphadenopathy. No bowel obstruction or bowel wall thickening. There is no evidence to suggest acute appendicitis. Images through the pelvis were performed. Urinary bladder unremarkable. No pelvic mass. No ascites. Impression: No significant abnormalities seen. No etiology for hematuria identified. Reviewed, dictated and finalized at [facility]. Impression: No significant abnormalities seen. No etiology for hematuria identified.
--- OUTSIDE RECORDS SUMMARY | 2024-12-02 07:36 | XMS_ITS | Clinical Summary ---
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
--- OUTSIDE RECORDS SUMMARY | 2024-12-02 07:36 | XMS_ITS | Referral Summary ---
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
--- OUTSIDE RECORDS SUMMARY | 2024-12-02 07:36 | XMS_ITS | Continuity of Care Document ---
Author Organization [facility] Address [address] [facility] [address] [facility] [address] [place] [address] Phone Care Team Providers Care Customer Order Clerk Name Role Phone Ramos Branham MD, MD Unavailable Unavail able Allergies, Adverse Reactions, Alerts Substance Reaction Status Criticality No Known Allergies Active No Inform ation Procedures Procedure Date BMI Documented Above Normal Limit F/U Pl an Doc X-ray exam elbow, 3+ views Office/outpatient visit,[facility], [facility] [place] 2023 Advance Directives Directive Yes / No Effective Date File Name No Information Encounters Encounter Description Practice Location Reason(s) For Visit Diagnoses Date Provider Providers Copied on Encounter [facility], [address], [id number], [place] tel:[phone] [facility] No Information 4 Yonas Beasley. [address] [facility] [facility] [address], [place], [place], [id number], [place]. 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 [address] [facility] [facility] [address], [place], [place], [address], [place]. tel:[phone] [employer], [address] [place] [address], [id number], [place] tel:[phone] [facility] Pain in right elbow Mar-0 4 [facility]. [address] [facility], [place], [place], [address], [place]. tel:[phone] Referring Provider: Ramos Da Silva, [address] [facility] [address], [place], [address] . tel:[phone] Office/outpat ient visit,new, [facility], [address], [place], [place], [id number], [place] tel:[phone] [facility] Right elbow (chief complaint) Pain in right elbowBenign neoplasm of connective and other soft tissue of right upper limb, including shoulder Jan- 4 Yonas Beasley. [address] [facility], [address], [place], [place], [id number], [place]. tel:[phone] Family History Family Member Type Diagnosis Age At Onset No Information Payers Payer name Insurance type Covered libertarian ID Authoriza alfonso(s) Kayley Mondragon [facility] [id number] 04 Social History Type Description Quantity Date [...] me that she first presented to her electronic technologist, and her electronic technologist referred her to my office. She is here now for further evaluation and treatment of her right elbow. Functional Status Date Functional Assessmen t No Information Instructions Date Instruction Additional Infor mation No Information Assessments Type Assessment Date No Information Patient Care Teams Name Effective Dates (start - stop) Status Members No Information
[2024-12-02 08:07] LABS: Estimated Glomerular Filt Rate > 60
== END 2024-12-02 07:31 | disposition home or self-care (01) ==
PROVIDERS: PCP Family Medicine
DX: R31.0 Gross hematuria (principal); Z72.0 Tobacco use
CPT/HCPCS: 74178; Q9967

== ENCOUNTER 2024-12-20 00:48 | Day surgery (SDC) | payer BC, SELFPAY ==
[2024-12-17 08:32] VITALS: BMI 25.9
--- NOTE | 2024-12-17 08:39 | PC.NURSE ---
Report to the Outpatient Waiting Room, entrance under the green pavilion located off [facility], at time _0615_ on date _[id number]_. Planned Procedure Time: _0815_.? Time changes happen often and if your time is changed the preop area will call you the afternoon before. - You and your visitor will be asked to self-screen and do not enter if you have any COVID symptoms. Please call surgeon if you need to reschedule. - A mask is optional within the hospital at this time. Patients may have clear liquids (water, carbonated beverages, clear teas, apple juice) until 3 hours prior to surgery with a maximum of 20 ounces. - No food from midnight until time of surgery and no smoking, or chewing tobacco (or any form of nicotine). No chewing gum, candy or mints. Take only the following medications with a SIP of water on the morning of surgery: ___None____ DO NOT STOP ANY OF YOUR OTHER PRESCRIPTION MEDICATIONS PRIOR TO SURGERY EXCEPT THE FOLLOWING Hold all vitamins and supplements for 3 days per anesthesiologist. Medications to discontinue per physician Date to take last dose Please no make-up, nail persian, hairspray, perfume, deodorant, or body powder the day of surgery.? No jewelry (including any body piercings) or valuables the day of surgery, leave them at home.? Please take a shower or bath the night before, or the morning of, surgery with an antibacterial soap.? Wear comfortable, loose fitting clothing.? - Jewelry must be removed prior to entering the operating room.? Rings and piercings that are not removed may be cut off. - The hospital will not accept responsibility for valuables.? - Please leave all valuables, including medications, at home the day of surgery. If you are going home after surgery, a licensed hire car driver must drive you home.? - NO public transportation without another adult if you receive anesthesia. - We recommend that an adult stay with you for 24 hours following discharge. - We also recommend that you do not drive, make important decision, drink alcoholic beverages, or take any drugs that were not prescribed by your health care provider for at least 24 hours after your discharge time. Follow any additional instructions given to you from your surgeon. Telephone instructions given to __Kadi___and asked if any additional questions and then verbalized understanding. Patient advised to call surgeon office or pre surgery nurse liaison [phone] if any additional questions.
--- OUTSIDE RECORDS SUMMARY | 2024-12-20 00:51 | XMS_ITS | Clinical Summary ---
Author Organization 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
--- OUTSIDE RECORDS SUMMARY | 2024-12-20 00:51 | XMS_ITS | Continuity of Care Document ---
Author Organization [facility] Address [address] [place] [address] Phone Care Team Providers Care Special Procedures Technologist Name Role Phone Ramos Branham MD, MD Unavailable Unavail able Allergies, Adverse Reactions, Alerts Substance Reaction Status Criticality No Known Allergies Active No Inform ation Procedures Procedure Date BMI Documented Above Normal Limit F/U Pl an Doc X-ray exam elbow, 3+ views Office/outpatient visit,[facility], [facility]23 Advance Directives Directive Yes / No Effective Date File Name No Information Encounters Encounter Description Practice Location Reason(s) For Visit Diagnoses Date Provider Providers Copied on Encounter [facility], [address], [id number], [place] tel:[phone] [facility] No Information 4 Yonas Beasley. [address] [address], [address], [place], [place], [id number], [place]. 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 [address] [facility], [facility] [address], [place], [place], [id number], [place]. tel:[phone] [facility], [address] [place] [address], [id number], [place] tel:[phone] [facility] Pain in right elbow Mar-0 4 [facility]. [address], [address], [place], [place], [id number], [place]. tel:[phone] Referring Provider: Ramos Da Silva, [address], [place], [address] . tel:[phone] Office/outpat ient visit,[place], [facility], [address], [place], [place], [id number], [place] tel:[phone] [facility] Right elbow (chief complaint) Pain in right elbowBenign neoplasm of connective and other soft tissue of right upper limb, including shoulder Jan- 4 Yonas Beasley. [address] [facility], [address], [place], [place], [id number], [place]. tel:[phone] Family History Family Member Type Diagnosis Age At Onset No Information Payers Payer name Insurance type Covered green party ID Authoriza alfonso(s) Kayley Mondragon [facility] [id number] Social History Type Description Quantity Date [...] me that she first presented to her cloud systems architect, and her cloud systems architect referred her to my office. She is here now for further evaluation and treatment of her right elbow. Functional Status Date Functional Assessmen t No Information Instructions Date Instruction Additional Infor mation No Information Assessments Type Assessment Date No Information Patient Care Teams Name Effective Dates (start - stop) Status Members No Information
--- OUTSIDE RECORDS SUMMARY | 2024-12-20 00:51 | XMS_ITS | Referral Summary ---
Author Organization 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
[2024-12-20] MEDS: ACETAMINOPHEN 500 MG TABLET 1000 MG PO (06:40)
[2024-12-20] MEDS: LACTATED RINGERS 1,000 ML 30 ML IV CONT (06:45)
[2024-12-20 06:50] VITALS: BP 143/91; PULSE 85; RESP 18; TEMP 37.1; O2SAT 100
--- NOTE | 2024-12-20 07:18 | WPDHPUPDATE1 ---
History and Physical Update Update Date/Time: 12/20/24 07:18 History and Physical has been reviewed, including an updated exam of the patient. There are NO changes in the patient's condition. Risks, benefits, and alternatives have been discussed and questions answered. Patient agrees to proceed with procedure.
--- NOTE | 2024-12-20 07:18 | PM.HPGS ---
History of Present Illness History of Present Illness Consent: Risks, benefits, and alternatives have been discussed and questions answered. Patient agrees to proceed with procedure. Chief complaint: thickened endometrium Narrative: Kadi Mead is a 64 year old female with a thickened endometrium at 11mm. The patient had bleeding for approximately 4 days. She was uncertain where the location was. She saw Urology and had a cystoscopy which was negative. Patient denies vaginal bleeding. It was recommended to undergo further workup with D&C hysteroscopy. Risks of infection, bleeding, perforation, and possible pathology are reviewed. Patient voices understanding and agrees to proceed. Review of Systems Review of Systems: not repeated day of surgery; patient states no changes in status PMFSH Past Medical History Medical History (Updated 12/20/24 @ 07:21 by Monalisa Smith MD) Hyperlipidemia Surgical History Surgical History (Updated 12/20/24 @ 07:21 by Monalisa Smith MD) Status post cystoscopy 12/24 History of bilateral tubal ligation At the time of History of Hx of tonsillectomy History of appendectomy Family History Family History Mother Hypertension Patient's mother is in good health, Onset Age: 76 Grandparent Diabetes mellitus Social History Social History Years smoked: 45 Smoking status: Current every day smoker Tobacco type: cigarettes Second hand tobacco smoke exposure: No Alcohol intake: never Substance use: never Substance use type: does not use Living arrangements: with family Spiritual care concerns: No Meds Home Medications and Allergies Home Medications ?Medication ?Instructions ?Recorded ?Confirmed ?Type ergocalciferol (vitamin D2) 1,250 1,250 mcg PO WEEKLY 08/05/24 12/20/24 History mcg (50,000 unit) capsule Allergies Allergy/AdvReac Type Severity Reaction Status Date / Time No Known Allergies Allergy Mild Verified 12/20/24 06:48 Vital Signs Vital Signs - 24 hr 12/20/24 06:50 Temperature 98.7 F Pulse Rate 85 Respiratory Rate 18 Blood Pressure 143/91 H Pulse Oximetry 100 Oxygen Delivery Room Air Exam Const: General: healthy appearing and alert Orientation/consciousness: patient oriented x3 Resp: Effort & Inspection: normal respiratory effort : External Female Exam: normal external appearance Speculum Exam - Vagina: normal appearance of the vagina and normal vaginal discharge Speculum Exam - Cervix: normal appearance of the cervix Bimanual exam- vagina & uterus: uterine size normal and consistency normal Bimanual Exam- Adnexa, other: normal adnexae and No adnexal tenderness Neuro: General: patient oriented x3 Assessment and Plan Assessment and plan (1) Thickened endometrium: Code(s): R93.89 - Abnormal findings on diagnostic imaging of other specified body structures Status: Acute Assessment and Plan: Plan to proceed with D&C hysteroscopy
--- NOTE | 2024-12-20 07:46 | P.PNAN_ITS ---
Anes - Initial Pre Proc Eval Procedure: Operation Date: 12/20/24 08:15 Proposed Procedures p Hysteroscopy Dilation and Curettage - Monalisa Smith MD Date/Time: 12/20/24 07:46 Surgeon: Monalisa Smith MD Pre Op Diagnosis: thickened endometrium Patient Data Age: 64 Gender: F Height: 1.7 m Weight: 76.2 kg Last Vital Signs Temp 98.7 F 12/20/24 06:50 Pulse 85 12/20/24 06:50 Resp 18 12/20/24 06:50 BP 143/91 H 12/20/24 06:50 Pulse Ox 100 12/20/24 06:50 O2 Del Method Room Air 12/20/24 06:50 Allergies Allergy/AdvReac Type Severity Reaction Status Date / Time No Known Allergies Allergy Mild Verified 12/20/24 06:48 Home Medications ?Medication ?Instructions ?Recorded ?Confirmed ?Type ergocalciferol (vitamin D2) 1,250 1,250 mcg PO WEEKLY 08/05/24 12/20/24 History mcg (50,000 unit) capsule Patient hx anesthesia problems: none Family hx anesthesia problems: none Results Review: All pre-operative results and documents have been reviewed as part of the pre- operative evaluation. [facility] Past Medical History Medical History (Updated 12/20/24 @ 07:21 by Monalisa Smith MD) Hyperlipidemia Surgical History Surgical History (Updated 12/20/24 @ 07:21 by Monalisa Smith MD) Status post cystoscopy 12/24 History of bilateral tubal ligation At the time of History of Hx of tonsillectomy History of appendectomy Family History Family History Mother Hypertension Patient's mother is in good health, Onset Age: 76 Grandparent Diabetes mellitus Social History Social History Years smoked: 45 Smoking status: Current every day smoker Tobacco type: cigarettes Second hand tobacco smoke exposure: No Alcohol intake: never Substance use: never Substance use type: does not use Living arrangements: with family Spiritual care concerns: No Anes - Eval Final PreProcedure Day of Procedure 12/20/24 07:46 Patient weight: normal Heart: regular rate and rhythm Lungs: clear to auscultation Airway: Mallampati scale class II Neurological: alert and oriented Last oral intake: >/= 8 hours ASA classification: II Emergent: no Anesthetic plan: proceed Anesthesia type and monitoring: general GIVS and standard monitoring Results Review: All pre-operative results and documents have been reviewed as part of the pre- operative evaluation. Informed Consent: The patient's anesthetic plan and its attendant risks and benefits were discussed with the patient/family/POA. Questions were solicited and answers provided to the satisfaction of the patient/family/POA.
--- NOTE | 2024-12-20 08:43 | S_PTH ---
PATIENT: Kadi Mead LOC: [facility] U#:[id number] AGE/SX: 64/F ROOM: RE12/20/[address]: Monalisa Smith MD : 1960 BED: DIS: 12/20/2024 SPEC #: [id number] RECD: 12/20/24 10:24 STATUS: LILLY REQ #: [id number] MACK: 12/20/24 08:[address]: Monalisa Smith DEPT: [facility] Surgical RECD BY: Elvia Pop ENTERED: 12/20/24 10:24 SP TYPE: Surgical OTHR DR: Franky Castano MD Tissues: A - Endometrial Curettings Procedures: Hematoxylin and Eosin Stain Gross and Microscopic Level 4
[2024-12-20] MEDS: KETOROLAC 30 MG/ML VIAL (*BKC) IV PUSH (08:45)
--- NOTE | 2024-12-20 08:54 | P.OP_ITS ---
Procedure Note - Detailed Date of Procedure 12/20/24 Pre-op Diagnosis thickened endometrium Post-op Diagnosis Same (Plus endometrial polyp) Procedure Performed D&C hysteroscopy with polypectomy Surgeon Monalisa Smith MD Anesthesia MAC Findings Uterus is retroverted and sounds to 7cm. There was a large polyp arising from near the left tubal ostia filling the majority of the cavity. The remainder of the endometrium appears grossly atrophic. Description of Procedure The patient was taken to the operating room and placed under anesthesia in the dorsal lithotomy position. She was prepped and draped in the usual sterile fashion. Arcadia speculum was placed in the vagina and the cervix grasped on the anterior lip with a tenaculum. The uterus is sounded to 7cm and noted to be retroverted. The hysteroscope is placed and with the above-stated findings the small Aveta resection device is placed. Under direct visualization the polyp was removed in its entirety. The hysteroscope was then removed and the sharp curette would not fit through the cervix. The cervix is serially dilated to 6 Hegar and the small sharp curette was then able to be placed. The endometrium was then curetted until a good uterine cry was noted in all areas. All instrum ents were then removed. Sponge, needle, and instrument counts are correct per the OR staff. The patient was awakened from anesthesia and taken to recovery in stable condition. Estimated Blood Loss 5 Drains No Packing No Pathology Yes (Endometrial shavings and curettings) Complications No immediate complications Condition Stable Disposition PACU
[2024-12-20 08:55] VITALS: BP 124/77; PULSE 67; RESP 16; O2SAT 98
[2024-12-20 09:25] VITALS: BP 135/78; PULSE 64; RESP 16; O2SAT 98
== END 2024-12-20 09:43 | disposition home or self-care (01) ==
PROVIDERS: PCP Family Medicine; Visit Provider Obstetrics & Gynecology Gynecology
PROC: 0U5B8ZZ Destruction of Endometrium, Via Natural or Artificial Opening Endoscopic (ICD-10-PCS; CPT 58563; principal; 2024-12-20 08:15)
DX: N84.0 Polyp of corpus uteri (principal); F17.210 Nicotine dependence, cigarettes, uncomplicated
CPT/HCPCS: 58558; 88305; A9270; J1100; J1885; J2003; J2250; J2405; J2704; J3010; J7120

== ENCOUNTER 2025-04-11 12:37 | Outpatient (CLI) | payer BC, SELFPAY ==
--- NOTE | ~2025-04-11 | MM_ITS ---
EXAMINATION: MM screening [facility] BI w kar HISTORY: Screening TECHNIQUE: Craniocaudal and mediolateral oblique 3-D tomosynthesis images were obtained and synthetic 2-D images were generated. CAD analysis was submitted and interpreted. COMPARISON: Comparison to multiple prior studies sequentially, with oldest reviewed study dated 01/01/2019. BREAST PARENCHYMAL COMPOSITION: Not dense: There are scattered areas of fibroglandular density. FINDINGS: There is no evidence of suspicious mass, calcification, or architectural distortion to suggest malignancy in either breast. There has been no suspicious interval change. IMPRESSION: 1. No mammographic evidence of malignancy. 2. Recommend routine screening mammography in one year. BI-RADS Category 1: Negative Reviewed, dictated and finalized at location B. [facility] CATH TECHNOLOGIST
== END 2025-04-11 12:38 | disposition home or self-care (01) ==
LOC: MICIMG 12:37
PROVIDERS: PCP Family Medicine; Visit Provider Obstetrics & Gynecology Gynecology
DX: Z12.31 Encounter for screening mammogram for malignant neoplasm of breast (principal)
CPT/HCPCS: 77063; 77067